=== PATIENT | female | born 1995 | race Caucasian/White ===

== ENCOUNTER 2024-01-26 18:00 | Inpatient (IN) | payer BC, SELFPAY ==
[2024-01-26 19:09] VITALS: BMI 43.4
[2024-01-26] MEDS ORDERED: Promethazine HCl 25 MG/ML VIAL IM PRN (19:40)
[2024-01-26] MEDS ORDERED: Lidocaine 1% (PF) 30 ML VIAL SC PRN (19:40)
[2024-01-26] MEDS ORDERED: hydrALAZINE 20 MG/ML VIAL SLOW IVP PRN (19:40)
[2024-01-26] MEDS ORDERED: fentaNYL 50 mcg/mL 1 mL Vial SLOW IVP PRN (19:40)
[2024-01-26] MEDS ORDERED: Misoprostol 200 MCG TAB PR PRN (19:40)
[2024-01-26] MEDS ORDERED: Ibuprofen 800 MG TAB PO PRN (19:40)
[2024-01-26] MEDS ORDERED: Ondansetron PF 4 MG/2 ML Vial IVP PRN (19:40)
[2024-01-26] MEDS ORDERED: Diphenoxylate HCl/Atropine Tablet PO PRN (19:40)
[2024-01-26] MEDS ORDERED: Acetaminophen 500 MG TAB PO PRN (19:40)
[2024-01-26] MEDS ORDERED: Carboprost 250 MCG/ML AMP IM PRN (19:40)
[2024-01-26] MEDS ORDERED: HYDROcodone/Acetaminophen 5/325 mg Tablet PO PRN (19:40)
[2024-01-26] MEDS ORDERED: Oxytocin 30 units/NS 500 ML 500 ML IV SCH (19:45)
[2024-01-26] MEDS: Misoprostol 100 MCG TAB VAG SCH (20:13)
[2024-01-26] MEDS: Labetalol HCl 200 MG TAB PO SCH (20:40)
[2024-01-26 21:02] LABS: Hematocrit 32.3 % (34.9-44.5); Hemoglobin 10.7 g/dL (12.0-15.5); Mean Corpuscular HGB CONC 33.1 g/dL (32.0-36.0); Mean Corpuscular Hemoglobin 28.2 pg (27.0-33.0); Mean Corpuscular Volume 85.2 fL (81.6-98.3); Mean Platelet Volume 9.7 fL (7.4-10.4); Platelet Count 243 10x3/uL (150-450); RBC Distribution Width 13.2 % (11.5-14.5); Red Blood Cell (RBC) Count 3.79 10x6/uL (3.90-5.03); White Blood Cell (WBC) Count 7.7 10x3/uL (3.5-10.5)
[2024-01-26 21:06] LABS: ALT (SGPT) 20 U/L (8-55); AST (SGOT) 19 U/L (5-34); Albumin 2.6 g/dL (3.5-5.0); Alkaline Phosphatase 81 U/L (40-110); Anion Gap 12 mmol/L (10-20); BUN (Urea Nitrogen) 11 mg/dL (7.0-18.7); Bilirubin, Total 0.2 mg/dL (0.2-1.2); Calc. Creatinine Clearance 230 mL/min (70-130); Calcium 9.2 mg/dL (7.8-10.44); Carbon Dioxide 23 mmol/L (22-29); Chloride 108 mmol/L (98-107); Estimated GFR 124; Globulin 3.4 g/dL (2.4-3.5); Glucose 117 mg/dL (70-105); Potassium 4.1 mmol/L (3.5-5.1); Sodium 139 mmol/L (136-145)
[2024-01-26 21:26] LABS: HBsAg Index 0.17 S/CO (0-0.99); Hep B Surf Ag - L&D Non-Reactive S/CO (NonReactive); Syphilis Antibody Nonreactive (Nonreactive); Syphilis Antibody Index 0.03 S/CO (<1.00 Non-Reactive)
[2024-01-27] MEDS: Lactated Ringer's 1,000 ML IV SCH (01:30)
[2024-01-27] MEDS ORDERED: Bupivacaine 0.25% HCL 30 ML VIAL ONE (08:00)
[2024-01-27] MEDS: Oxytocin 30 units/NS 500 ML 500 ML IV SCH (08:38)
[2024-01-27] MEDS: fentaNYL/Ropivacaine Epidural 100 ML ONE (10:16)
[2024-01-27] MEDS ORDERED: Lactated Ringer's 500 ML IV PRN (10:37)
[2024-01-27] MEDS ORDERED: Moisturizing Cream (Eucerin) 113 GM JAR TOP PRN (10:37)
[2024-01-27] MEDS ORDERED: Naloxone HCl 0.4 mg/ml Vial IVP PRN ×2 (10:37)
[2024-01-27] MEDS ORDERED: Ondansetron PF 4 MG/2 ML Vial IVP PRN ×2 (10:37→23:09)
[2024-01-27] MEDS ORDERED: Acetaminophen 325 MG TAB PO PRN (10:37)
[2024-01-27] MEDS ORDERED: Promethazine HCl 25 MG/ML VIAL IM PRN ×2 (10:37→23:09)
[2024-01-27] MEDS ORDERED: diphenhydrAMINE 50 MG/ML VIAL IVP PRN (10:37)
[2024-01-27] MEDS ORDERED: ePHEDrine Sulfate 50 MG/10 ML VIAL SLOW IVP PRN (10:37)
[2024-01-27] MEDS ORDERED: fentaNYL 2 mcg/Ropivacaine 0.2% Epidural 100 ML CADD EPIDURAL SCH (10:45)
[2024-01-27] MEDS ORDERED: Communication Order-Pharmacy FS SCH (10:45)
[2024-01-27] MEDS ORDERED: Preparation H Ointment 28 GM TUBE PR PRN (23:09)
[2024-01-27] MEDS ORDERED: hydrALAZINE 20 MG/ML VIAL SLOW IVP PRN (23:09)
[2024-01-27] MEDS ORDERED: Lanolin Ointment 7 GM TUBE TOP PRN (23:09)
[2024-01-27] MEDS ORDERED: Bisacodyl 10 MG SUPP PR PRN (23:09)
[2024-01-27] MEDS ORDERED: Milk Of Magnesia 30 ML UDCUP PO PRN (23:09)
[2024-01-27] MEDS ORDERED: HYDROcodone/Acetaminophen 5/325 mg Tablet PO PRN ×2 (23:09)
[2024-01-27] MEDS ORDERED: diphenhydrAMINE 25 MG CAP PO PRN (23:09)
[2024-01-28] MEDS: Ibuprofen 800 MG TAB PO SCH (00:39)
[2024-01-28] MEDS: Benzocaine-Menthol 82.5 ML CAN TOP PRN (00:40)
[2024-01-28] MEDS: Tranexamic Acid 1,000 MG/10 ML VIAL ONE (00:51)
[2024-01-28] MEDS: Carboprost 250 MCG/ML AMP ONE (00:51)
[2024-01-28] MEDS: Methylergonovine 0.2 MG/ML VIAL ONE (00:52)
[2024-01-28] MEDS: Boostrix 0.5 ML (Tdap) VIAL (>/=7 yrs of age) IM ONE (00:52)
[2024-01-28] MEDS: Docusate 100 MG CAP PO SCH (08:57)
[2024-01-28] MEDS: Prenatal Vitamin 1 TAB PO SCH (08:57)
[2024-01-28] MEDS: Ferrous Sulfate 325 MG TAB PO SCH (08:58)
[2024-01-29 06:13] VITALS: TEMP 98.2
[2024-01-29 10:26] VITALS: BP 132/75
== END 2024-01-29 12:20 | disposition home or self-care (01) | DRG 807 ==
LOC: CSHLD 18:03 → CSHPP 01-27 23:20
PROVIDERS: ADMIT Student in an Organized Health Care Education/Training Program; ATTEND Student in an Organized Health Care Education/Training Program
PROC: 10E0XZZ Delivery of Products of Conception, External Approach (ICD-10-PCS; principal; 2024-01-27)
PROC: 10907ZC Drainage of Amniotic Fluid, Therapeutic from Products of Conception, Via Natural or Artificial Opening (ICD-10-PCS; 2024-01-27)
PROC: 10H07YZ Insertion of Other Device into Products of Conception, Via Natural or Artificial Opening (ICD-10-PCS; 2024-01-27)
PROC: 0HQ9XZZ Repair Perineum Skin, External Approach (ICD-10-PCS; 2024-01-27)
DX: O10.92 Unspecified pre-existing hypertension complicating childbirth (principal); Z37.0 Single live birth; Z3A.38 38 weeks gestation of pregnancy; Z88.0 Allergy status to penicillin; O70.0 First degree perineal laceration during delivery
CPT/HCPCS: 36415; 51702; 80053; 85027; 86780; 86850; 86900; 86901; 87340; J0665; J2590; J7120